=== PATIENT | female | born 1975 | race Caucasian/White ===

== ENCOUNTER 2016-09-16 20:43 | Emergency (ER) | payer OTHER ==
[~2016-09-16] VITALS: Ht 162.6 cm; Wt 92.6 kg
[2016-09-16 21:00] VITALS: BP 150/102; PULSE 98; RESP 16; O2SAT 100
[2016-09-16] MEDS ORDERED: ALPR1TAB2 PO (21:04)
[2016-09-16] MEDS ORDERED: GABA-504 PO (21:04)
[2016-09-16 21:25] LABS: BASOPHILS % (AUTO) 0.6 % (0-3); EOSINOPHILS % (AUTO) 1.9 % (0-5); MONOCYTES % (AUTO) 6.9 % (4-12); Mean Corpuscular Hemoglobin 31.7 pg (27.0-35.0); Mean Corpuscular Volume 89.5 fL (81-100); NEUTROPHILS % (AUTO) 68.5 % (40-74); Platelet Count 235 bil/L (150-400)
[2016-09-16 21:47] LABS: Magnesium 1.8 mg/dL (1.6-2.6)
--- NOTE | 2016-09-16 22:20 | PCM.EDPN ---
ED Note Date of Service Sep 16, 2016 41-year-old female who presented for "lumps on the abdomen". Her vital signs were remarkable for mild elevation of her blood pressure 150/102. Nurse initiated labs were done per protocol. She had a mild elevation of the white blood count at 11,500 and an elevation of the nonfasting glucose in 119. Neither of these appear to be clinically significant. She left without being seen. It is assumed that she will follow up with her primary provider. Maxim Conway MD Sep 16, 2016 22:20
== END 2016-09-16 21:45 | disposition left against medical advice (07) ==
LOC: SED 20:43
DX: Z53.21 Procedure and treatment not carried out due to patient leaving prior to being seen by health care provider (principal)

== ENCOUNTER 2016-09-18 04:00 | Emergency (ER) | payer SELFPAY ==
[~2016-09-18] VITALS: Ht 162.6 cm; Wt 92.7 kg
[~2016-09-18 04:00] MED LIST: ALPR1TAB2 PO; GABA-504 PO
[2016-09-18 04:07] VITALS: BP 132/90; PULSE 86; RESP 18; O2SAT 98
--- NOTE | 2016-09-18 04:27 | ED.REPORT ---
HPI-General Illness Date of Service Sep 18, 2016 ED Provider: Maxim Conway MD A 41 year old female presents to the ED complaining of multiple abdominal masses /"lumps" that first appeared 7 months ago. Patient states that they have become larger and more painful since initial onset. Patient recently visited the ED on 09/16 for similar symptoms but left without being seen. She denies any other medical complaints at this time. Nursing Notes Stated Complaint: PAIN, BLACK MOLES Chief Complaint: General Complaint Nursing Notes Reviewed: Yes Allergies: Coded Allergies: No Known Allergies (Unverified , 09/18/16) Scheduled Gabapentin (Gabapentin) 400 Mg Capsule 400 MG PO DAILY Scheduled PRN Alprazolam (Xanax) 1 Mg Tablet 0.5 MG PO TID PRN PRN For Anxiety General Time Seen by MD: 04:22 Chief Complaint Other (Abdominal masses) Hx Obtained From: Patient Arrived By: Walk-in Sudden in Onset?: No Onset Occurred: More than a week ago... (>6 months) Symptom Duration: Since onset Location: : Abdomen Quality: Painful Radiation: : Does not radiate Severity: Current: Mild Severity: Maximum: Mild Associated with: Reports: Abdominal pain (Abdominal lumps ) Pertinent Negative: Pt denies other symptoms Recent Healthcare: No recent doctor visit, No recent hospitalization Past Medical History Past Medical History Pscoriasis Hx depression with suicidal ideation Past Surgical History None reported. Smoking History Current Every Day Smoker Social History Other Social History: Local resident Ambulatory Status Independent Review of Systems Pt reports abdominal "lumps" Full Review of Systems Constitutional: Denies: Chills, Fever Respiratory: Denies: Shortness of breath Cardiovascular: Denies: Chest pain GI: Denies: Nausea, Vomiting Neurologic: Denies: Change LOC Complete sys rev & neg: except as marked. Physical Exam Vital Signs Vital Signs Date Time Temp Pulse Resp B/P Pulse Ox O2 Delivery O2 Flow Rate FiO2 09/18/16 04:07 36.3 86 18 132/90 98 Room Air Initial VS: Reviewed, Vital signs normal Head / Eyes: Atraumatic, Normocephalic, PERRL Extremities: Vascular intact, Neuro intact, No swelling, No tenderness Skin: Warm, Dry, No cyanosis Neurologic: Alert, Oriented, Nonfocal General/Constitutional: Awake, Alert Respiratory / Chest: Atraumatic, No respiratory distress Abdomen: Atraumatic, Soft Skin: Atraumatic, Color NL, Warm, Dry, Intact Color / Condition: Negative: Erythema generalized, Erythema localized Rash / Lesion Notes: SKIN: 2 tender subcutaneous lumps under the right breast Total body sunburn due to tanning bed Psoriasis over majority of body without excoriating areas Multiple skin tags on thigh - no evidence of malignancy Re-Eval/Medical Decision Med Decision/Clinical Course It is not clear to me why this 41-year-old female presented to the emergency room at this time. She has severe psoriasis and has been self treating with a tanning montiel and attempt to alleviate her symptoms. She does not have insurance and feels very frustrated by this at times. She has 2 areas under her right breast that are probably sebaceous cysts but they are deep in the subcutaneous tissue and it is difficult to evaluate them. She is told she needs to see a general surgeon for that. She also has a several skin tags some pigmented between her thighs. None of these looks particularly concerning for cancer. It is recommended that she go to [facility] for further evaluation and ongoing treatment. Time of Eval: 04:58 Patient Status: Condition improved Re-Evaluation/Progress Note: Patient is rechecked. She is informed of her exam results. All of the patient's questions are adressed. She understands and agrees with the treatment plan to discharge. Counseled Regarding: Diagnosis, Need for follow-up, When/why to return to ED Discharge & Departure Primary Impression: Skin lesions Disposition: Home Discharge Condition All VS Reviewed: Yes Condition: Stable Patient Instructions: Psoriasis (ED) Additional Instructions: The skin tags and darker lesions along your thighs do not appear to be skin cancer, but it would be bruce to have them looked at by a specialist. The 2 areas below your right breast are probably sebaceous cysts, but need to be biopsied slashed removed to know for sure. Recommend that you go to [facility], see brochure. Referrals: Tobi Acosta MD (PCP) Chanoibshirley Attestation Portions of this note were transcribed by Monet Brown. I, Dr. Conway personally performed the history, physical exam and medical decision-making; I reviewed and confirmed the accuracy of the information in the transcribed note. Signed by: Rodo Tatum, 09/18/16 0500. copies to: Tobi Acosta MD, Howard L MD Sep 18, 2016 04:27 MONET BROWN Sep 18, 2016 04:34
== END 2016-09-18 05:10 | disposition home or self-care (01) ==
LOC: SED 04:00
DX: L98.9 Disorder of the skin and subcutaneous tissue, unspecified (principal); F17.200 Nicotine dependence, unspecified, uncomplicated

== ENCOUNTER 2016-09-26 11:32 | Emergency (ER) | payer SELFPAY ==
[~2016-09-26] VITALS: Ht 162.6 cm; Wt 92.7 kg
[2016-09-26 11:34] VITALS: BP 145/95; PULSE 89; RESP 16; O2SAT 99
[2016-09-26] MEDS ORDERED: Tetracaine 0.5% 4 mL Ophthalmic Solution LEFT_EYE ONE (12:15)
--- NOTE | 2016-09-26 12:32 | ED.REPORT ---
HPI-Eye Problem Date of Service Sep 26, 2016 ED Provider: Jeffery French PA-C Latosha is a 41-year-old female who presents with a chief complaint of left eye redness. She reports 4 day history of red eye with yellow discharge, worst in the morning associated with foreign body sensation. Also complains of eye and facial pain when she leans over. Denies trauma and use of contact lenses. She feels her vision is slightly blurred. She reports a history of psoriasis and fibromyalgia. Nursing Notes Stated Complaint: LEFT EYE ISSUE Chief Complaint: Eye Nursing Notes Reviewed: Yes Allergies: Coded Allergies: No Known Allergies (Unverified , 09/26/16) Scheduled Amoxicillin (Amoxicillin) 500 Mg Tablet 500 MG PO TID Gabapentin (Gabapentin) 400 Mg Capsule 400 MG PO DAILY Scheduled PRN Alprazolam (Xanax) 1 Mg Tablet 0.5 MG PO TID PRN PRN For Anxiety General Time Seen by MD: 11:45 Chief Complaint Left eye affected Past Medical History Past Medical History Pscoriasis Hx depression with suicidal ideation Past Surgical History None reported. Smoking History Current Every Day Smoker Social History Other Social History: Local resident Ambulatory Status Independent Review of Systems Review of Systems Note: Negative unless stated otherwise in history of present illness Physical Exam General: Well appearing, well developed, well nourished, no acute distress. Head: Atraumatic, normocephalic. No mastoid tenderness. Visual acuity: Left eye 20/60, right eye 20/30, both eyes 20/30 Left eye: Significant injection in right conjunctiva. Watery discharge. PERRL. No pain with consensual reactivity. EOMI. Vision grossly intact. Examination with Wood's lamp reveals no focal areas of fluorescein uptake. Right eye: Negative injection, discharge. PERRL. EOMI. Vision grossly intact. Ears: Negative vesicular lesions. Pinna and tragus nontender with manipulation. External auditory canal patent, atraumatic and without discharge. Tympanic membrane bobby, shiny and translucent without fluid, bulging, retraction or perforation. Hearing grossly intact. Nose: Symmetrical, nares patent without discharge. Left frontal sinus tenderness, no right frontal or maxillary sinus tenderness. Left frontal sinus does not transilluminate. Negative Recinos sign Mouth/pharynx: Edentulous, mucus membranes moist. Tonsils 2+ and symmetrical, uvula midline. Pharynx noninjected, no cobblestoning or discharge. Voice clear. Neck: No tenderness or lymphadenopathy. Trachea midline. Respiratory: No respiratory distress, no increased work of breathing. Speaks in complete sentences. Skin: Warm and dry. Neurological: Grossly nonfocal. Psychological: alert and oriented. Speech appropriate, linear and logical. Behavior appropriate. Initial Vital Signs Vital Signs (First) Date Time Temp Pulse Resp B/P Pulse Ox O2 Delivery O2 Flow Rate FiO2 09/26/16 11:34 36.0 89 16 145/95 99 Room Air Initial VS: Reviewed, Vital signs normal Re-Eval/Medical Decision Med Decision/Clinical Course Otherwise healthy 41-year-old female presents with 4 day history of a red left eye. Also complains of I/facial pressure with bending over. Physical examination reveals maxillary sinus tenderness as well as reduce transillumination. Significant conjunctival injection, watery discharge. Management with lamp reveals no areas of focal uptake. Visual acuity intact. Negative Recinos sign. I discussed this patient with Dr. Jiménez who met with and examine the patient. I believe this is a maxillary sinus infection and bacterial conjunctivitis. I am reassured that this is unlikely to be traumatic, bacterial or viral keratitis , glaucoma, periorbital or orbital cellulitis. Stable and safe for discharge home. Prescribed amoxicillin. Advised primary care follow-up, gave emergent return precautions. The patient understands and agrees with the plan. Discharge & Departure Primary Impression: Sinus infection Sinusitis location: maxillary Chronicity: acute Recurrence: non-recurrent Qualified Code: J01.00 - Acute maxillary sinusitis, unspecified Additional Impression: Conjunctivitis Conjunctivitis type: acute Acute conjunctivitis type: bacterial Laterality : left Qualified Code: H10.022 - Other mucopurulent conjunctivitis, left eye Disposition: Home Discharge Condition All VS Reviewed: Yes Condition: Stable Patient Instructions: Conjunctivitis (ED) Additional Instructions: Evaluation for red eye in the emergency department. History and physical suggests that you have a sinus infection as well as bacterial conjunctivitis. I will prescribe antibiotics for this. I will provide enough to take them for 14 days. You can stop taking them after 10 days if your symptoms have resolved. Please follow up with your primary care provider if you have any further concerns. Return to emergency department for new or worsening symptoms including fever, increasing pain or decreasing vision. Referrals: Tobi Acosta MD (PCP) EDSupervising Provider for APC: Zenobia Jiménez MD Attending Statement Patient seen and examined. Left eye no visual changes no signs or symptoms of iritis significant scleral injection and significant tenderness over the left maxillary sinus with opacification appreciated with transillumination. Suspect left maxillary sinusitis with complicating bacterial conjunctivitis on the left. Will treat with amoxicillin. Seen with Manolo. Agree with assessment and plan as above copies to: Tobi Acosta MD, Seth PA-C Sep 26, 2016 12:32 Zenobia Jiménez MD Sep 26, 2016 13:50
[2016-09-26] MEDS ORDERED: AMOX500T2 PO (12:42)
== END 2016-09-26 12:55 | disposition home or self-care (01) ==
LOC: SED 11:32
DX: J01.00 Acute maxillary sinusitis, unspecified (principal); H10.022 Other mucopurulent conjunctivitis, left eye; F17.200 Nicotine dependence, unspecified, uncomplicated